=== PATIENT | female | born 1985 | race Two or more races ===

== ENCOUNTER → 2024-03-04 | Outpatient (CLI) | payer OTHER, MEDICAID, SELFPAY ==
--- NOTE | 2024-03-04 10:00 | XR_ITS ---
Examination: Breast ultrasound complete, bilateral Date and time of exam: March 04, 2024 1055 hours INDICATIONS: Bilateral breast pain beginning 3 months ago Technique: Real-time grayscale ultrasonographic imaging bilateral breasts, including all 4 quadrants as well as nipple retroareolar and axillary regions. Findings: No cystic or solid mass involving either breast IMPRESSION: BI-RADS Category 1: Negative studies
== END | disposition home or self-care (01) ==
PROVIDERS: PCP Family Medicine; Referring Provider Advanced Practice Midwife; Visit Provider Advanced Practice Midwife
DX: N64.4 Mastodynia (principal)
CPT/HCPCS: 76641

== ENCOUNTER 2024-03-09 12:26 | Outpatient (RCR) | payer OTHER, MEDICAID, SELFPAY ==
--- NOTE | 2024-03-15 14:24 | CTCFLWUP_ITS ---
Patient: ASHLEY DANGELO : 1985 Page 3 of 4 FOLLOW UP NOTE DATE OF SERVICE: 03/09/2024 NAME: ASHLEY DANGELO ACCOUNT: [id number] : 1985 AGE: 38 INTERVAL HISTORY: Patient is doing well. ONCOLOGY HISTORY: DIAGNOSIS: Malignant melanoma of skin, unspecified [ICD10] C43.9 DATE OF DIAGNOSIS: 04/26/2020 STAGE/TNM: T4a NO M0 TREATMENT HISTORY: Care?Plan Start?Date Cycle Day Intent KEYTRUDA?200 06/12/2021 1 21 Curative?(adjuvant) HISTORY OF PRESENT ILLNESS: Ashley Dangelo is a 38-year-old SPA speaking female with history of asthma has the following on cology history. 04/26/2020: Ms. Dangelo was seen at [facility] in [place] for a skin lesion located on the right buttock which was changed in color and becoming itchy. Biopsy was deferred due to insurance r easons. 11/30/2020: Shave biopsy of the right buttock lesion was performed. 02/16/2021: Ms. Dangelo had a fusiform wide excision. 03/23/2021: PET/CT scan? 04/12/2021: Ms. Dangelo had sentinel lymph node biopsy done in [place] 06/12/2021?06/07/2022: Completed 1 year of adjuvant pembrolizumab 10/18/2022: PET/CT scan? OTHER MEDICAL HISTORY/CONDITIONS: FAMILY HISTORY: SOCIAL HISTORY: LEGAL COUNSEL HISTORY: MEDICATIONS: 1. None Medications Last Reconciled by Ashley Olsen MA on 03/09/2024 ALLERGIES: No Known Drug Allergies REVIEW OF SYSTEMS: A complete 14-point review of systems was performed and is negative except as noted in interval histo ry. PHYSICAL EXAMINATION: VITAL SIGNS: Temperature?99.2, B/P?118/85, Oxygen?Saturation?97% Weight?136?lbs PAIN: 0 - No pain ECOG Performance Status: 0 - Asymptomatic and fully active GENERAL APPEARANCE: Appears well, in no apparent distress, appropriately interactive. HEENT: Normocephalic, no temporal wasting, normal conjunctiva, no scleral icterus, normal hearing, li ps without lesions, neck normal range of motion. CARDIOVASCULAR: Not assessed. PULMONARY: Normal respiratory effort, no respiratory distress or use of accessory muscles, speaking i n full sentences, no tachypnea. EXTREMITIES: No pedal edema or cyanosis. SKIN: Normal skin appearance. NEUROLOGIC: Alert and oriented x4. PSHYCHIATRIC: Appropriate affect, mood normal, behavior normal, intact thought and speech. LABORATORY DATA: I have personally reviewed and interpreted each of the patient?s relevant lab tests, abnormal finding s are below: Date 02/01/22 ??GLUCOSE,RANDOM?(mg/dL) 84 ??BLOOD?UREA?NITROGEN?(mg/dL) 20 ??CREATININE?(mg/dL) 0.70 ??SODIUM?(mmol/L) 140 ??POTASSIUM?(mmol/L) 4.3 ??CHLORIDE?(mmol/L) 109?H ??CrCl?(CandG)?(ml/min) 104.44 ??AST/SGOT?(Unit/L) <?8 ??ALT/SGPT?(Unit/L) 16 ??ALKALINE?PHOSPHATASE?(Unit/L) 45?L ??BILIRUBIN,?TOTAL?(mg/dL) 0.9 ??PROTEIN?TOTAL?(gm/dl) 7.0 ??ALBUMIN,?SERUM?(gm/dl) 4.4 ??GLOBULIN?(gm/dl) 2.6 ??ALBUMIN/GLOBULIN?RATIO 1.7 ??CALCIUM,?SERUM?(mg/dL) 8.8 ??CALCIUM?SERUM?(CORRECTED)?(mg/dL) 8.8 ASSESSMENT/PLAN: 1. Stage IIb (PT 4a, sN0, cM0) malignant melanoma (02/16/2021) Ms. Dangelo is clinically doing well without any complaints. No clinical evidence of recurrence of her melanoma PET/CT scan (10/18/2022) is negative for recurrence. Completed 1 year of adjuvant pembrolizumab on 06/07/2022 without any significant side effects. No specific intervention required at this time. ORDERS: PET/CT scan for restaging scan and to rule out any recurrence and metastatic disease RETURN TO CLINIC: 6 months BILLING AND COMPLIANCE: I reviewed external records from providers outside my specialty as summarized above. I spent a total of 50 minutes on this patient?s care on the day of their visit excluding time spent related to any bi lled procedures. This time includes time spent with the patient as well as time spent documenting in the medical record, reviewing patients records and tests, obtaining history, placing orders, communi cating with other healthcare professionals, counseling the patient, family or caregiver, and/or care coordination for the diagnoses above. Electronically Signed by: Akshat Hoang MD T: 2:21 PM CC: PCP: Feli Crespo Referring: Feli Crespo This document was completed utilizing speech recognition software. Grammatical errors, random word in sertions, pronoun errors, and incomplete sentences are an occasional consequence of this system due t o software limitations, ambient noise, and hardware issues. Any formal questions or concerns about th e content, text or information contained within the body of this dictation should be directly address ed to the provider for clarification.
== END 2024-03-17 23:59 | disposition home or self-care (01) ==
LOC: SCTC 12:26
PROVIDERS: PCP Nurse Practitioner Family; Referring Provider Nurse Practitioner Family; Visit Provider Internal Medicine Hematology & Oncology
DX: Z08 Encounter for follow-up examination after completed treatment for malignant neoplasm (principal); Z85.820 Personal history of malignant melanoma of skin
CPT/HCPCS: 99212; G0463

== ENCOUNTER → 2024-04-09 | Outpatient (CLI) | payer OTHER, MEDICAID, SELFPAY ==
[2024-04-09 14:14] LABS: HCG Qualitative,Urine Negative
--- NOTE | 2024-04-09 14:45 | XR_ITS ---
EXAMINATION: PET/CT FUSION SKULL TO THIGH EXAM DATE AND TIME: April 09, 2024 1517 hours Comparison October 18, 2022 INDICATIONS: Diagnosis malignant melanoma post treatment restaging CTDI:vol (mGy) 7.21 DLP: (mGycm) 1116.44 PROCEDURE: 16.55 mCi FDG was administered intravenously To allow for distribution and uptake of radiotracer, the patient was allowed to rest quietly in a shielded room. Imaging was performed on an integrated 16-slice PET/CT scanner, with scanning from the skull base to the mid thigh. Serum blood glucose at the time of the injection was measured 83 mg/dL. CT scanning was performed without oral or intravenous contrast material. FINDINGS: Head and Neck: There is no victorino hypermetabolism in the neck. The visualized portions of the brain are normal in appearance on CT. Chest: There is no victorino hypermetabolism in the chest. There are no pulmonary nodules. Abdomen and Pelvis: There is no victorino hypermetabolism in retroperitoneal or pelvic chains. The spleen is normal in size and FDG avidity. Musculoskeletal: Marrow uptake is within normal range. IMPRESSION: No interval metastatic disease
== END | disposition home or self-care (01) ==
LOC: CDIM 13:27
PROVIDERS: PCP Family Medicine; Referring Provider Internal Medicine Hematology & Oncology; Visit Provider Internal Medicine Hematology & Oncology
DX: C43.9 Malignant melanoma of skin, unspecified (principal); Z32.00 Encounter for pregnancy test, result unknown
CPT/HCPCS: 78816; 81025; A9552

== ENCOUNTER 2024-04-30 10:33 | Outpatient (RCR) | payer OTHER, MEDICAID, SELFPAY ==
--- NOTE | 2024-05-17 13:54 | CTCFLWUP_ITS ---
Patient: ASHLEY DANGELO : 1985 Page 3 of 4 FOLLOW UP NOTE DATE OF SERVICE: 04/30/2024 NAME: ASHLEY DANGELO ACCOUNT: [id number] : 1985 AGE: 39 INTERVAL HISTORY: Patient is doing well. ONCOLOGY HISTORY: DIAGNOSIS: Malignant melanoma of skin, unspecified [ICD10] C43.9 DATE OF DIAGNOSIS: 04/26/2020 STAGE/TNM: T4a NO M0 TREATMENT HISTORY: Care?Plan Start?Date Cycle Day Intent KEYTRUDA?200 06/12/2021 1 21 Curative?(adjuvant) HISTORY OF PRESENT ILLNESS: Ashley Dangelo is a 39-year-old SPA speaking female with history of asthma has the following oncology history. 04/26/2020: Ms. Dangelo was seen at [facility] in [place] for a skin lesion located on the right buttock which was changed in color and becoming itchy. Biopsy was deferred due to insurance reasons. 11/30/2020: Shave biopsy of the right buttock lesion was performed. 02/16/2021: Ms. Dangelo had a fusiform wide excision. 03/23/2021: PET/CT scan? 04/12/2021: Ms. Dangelo had sentinel lymph node biopsy done in [place] 06/12/2021?06/07/2022: Completed 1 year of adjuvant pembrolizumab 10/18/2022: PET/CT scan? 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 None Medications Last Reconciled by Bere Chavarria MA on 04/30/2024 ALLERGIES: No Known Drug Allergies REVIEW OF SYSTEMS: A complete 14-point review of systems was performed and is negative except as noted in interval history. PHYSICAL EXAMINATION: VITAL SIGNS: Temperature?98.1, B/P?115/76, Oxygen?Saturation?96% Weight?141?lbs PAIN: 0 - No pain GENERAL APPEARANCE: Appears well, in no apparent distress, appropriately interactive. HEENT: Normocephalic, no temporal wasting, normal conjunctiva, no scleral icterus, normal hearing, lips without lesions, neck normal range of motion. CARDIOVASCULAR: Not assessed. PULMONARY: Normal respiratory effort, no respiratory distress or use of accessory muscles, speaking in full sentences, no tachypnea. EXTREMITIES: No pedal edema or cyanosis. SKIN: Normal skin appearance. NEUROLOGIC: Alert and oriented x4. PSHYCHIATRIC: Appropriate affect, mood normal, behavior normal, intact thought and speech. LABORATORY DATA: I have personally reviewed and interpreted each of the patient?s relevant lab tests, abnormal findings are below: Date 02/01/22 ??GLUCOSE,RANDOM?(mg/dL) 84 ??BLOOD?UREA?NITROGEN?(mg/dL) 20 ??CREATININE?(mg/dL) 0.70 ??SODIUM?(mmol/L) 140 ??POTASSIUM?(mmol/L) 4.3 ??CHLORIDE?(mmol/L) 109?H ??CrCl?(CandG)?(ml/min) 104.44 ??AST/SGOT?(Unit/L) <?8 ??ALT/SGPT?(Unit/L) 16 ??ALKALINE?PHOSPHATASE?(Unit/L) 45?L ??BILIRUBIN,?TOTAL?(mg/dL) 0.9 ??PROTEIN?TOTAL?(gm/dl) 7.0 ??ALBUMIN,?SERUM?(gm/dl) 4.4 ??GLOBULIN?(gm/dl) 2.6 ??ALBUMIN/GLOBULIN?RATIO 1.7 ??CALCIUM,?SERUM?(mg/dL) 8.8 ??CALCIUM?SERUM?(CORRECTED)?(mg/dL) 8.8 ASSESSMENT/PLAN: 1. Stage IIb (PT 4a, sN0, cM0) malignant melanoma (02/16/2021) Ms. Dangelo is clinically doing well without any complaints. No clinical evidence of recurrence of her melanoma PET/CT scan (10/18/2022) is negative for recurrence. Completed 1 year of adjuvant pembrolizumab on 06/07/2022 without any significant side effects. No specific intervention required at this time. CBC CMP Refer to dermatology for physical examination for any melanoma reoccurrence RETURN TO CLINIC: 1 year BILLING AND COMPLIANCE: I reviewed external records from providers outside my specialty as summarized above. I spent a total of 50 minutes on this patient?s care on the day of their visit excluding time spent related to any billed procedures. This time includes time spent with the patient as well as time spent documenting in the medical record, reviewing patients records and tests, obtaining history, placing orders, communicating with other healthcare professionals, counseling the patient, family or caregiver, and/or care coordination for the diagnoses above. Electronically Signed by: Akshat Hoang MD T: 1:52 PM CC: PCP: Juliano Morocho Referring: Juliano Morocho This document was completed utilizing speech recognition software. Grammatical errors, random word insertions, pronoun errors, and incomplete sentences are an occasional consequence of this system due to software limitations, ambient noise, and hardware issues. Any formal questions or concerns about the content, text or information contained within the body of this dictation should be directly addressed to the provider for clarification.
== END 2024-05-15 23:59 | disposition home or self-care (01) ==
LOC: SCTC 10:33
PROVIDERS: PCP Family Medicine; Referring Provider Family Medicine; Visit Provider Internal Medicine Hematology & Oncology
DX: Z08 Encounter for follow-up examination after completed treatment for malignant neoplasm (principal); Z85.820 Personal history of malignant melanoma of skin; Z92.21 Personal history of antineoplastic chemotherapy
CPT/HCPCS: 99212; G0463

== ENCOUNTER 2024-10-29 11:34 | Outpatient (RCR) | payer OTHER, MEDICAID, SELFPAY ==
--- NOTE | 2024-10-29 13:16 | CTCFLWUP_ITS ---
Patient: ASHLEY DANGELO : 1985 Page 2 of 2 FOLLOW UP NOTE DATE OF SERVICE: 10/29/2024 NAME: ASHLEY DANGELO ACCOUNT: [id number] : 1985 AGE: 39 INTERVAL HISTORY: Patient is doing well. No new complaints. Patient yet to see dermatology ONCOLOGY HISTORY: DIAGNOSIS: Malignant melanoma of skin, unspecified [ICD10] C43.9 DATE OF DIAGNOSIS: 04/26/2020 STAGE/TNM: T4a NO M0 TREATMENT HISTORY: Care?Plan Start?Date Cycle Day Intent KEYTRUDA?200 06/12/2021 1 21 Curative?(adjuvant) HISTORY OF PRESENT ILLNESS: Ashley Dangelo is a 39-year-old SPA speaking female with history of asthma has the following oncology history. 04/26/2020: Ms. Dangelo was seen at [facility] in [place] for a skin lesion located on the right buttock which was changed in color and becoming itchy. Biopsy was deferred due to insurance reasons. 11/30/2020: Shave biopsy of the right buttock lesion was performed. 02/16/2021: Ms. Dangelo had a fusiform wide excision. 03/23/2021: PET/CT scan? 04/12/2021: Ms. Dangelo had sentinel lymph node biopsy done in [place] 06/12/2021?06/07/2022: Completed 1 year of adjuvant pembrolizumab 10/18/2022: PET/CT scan? OTHER MEDICAL HISTORY/CONDITIONS: FAMILY HISTORY: SOCIAL HISTORY: APPLICATION INTERNSHIP HISTORY: MEDICATIONS: 1. None Medications Last Reconciled by Ashley Rodriguez MD on 10/29/2024 ALLERGIES: No Known Drug Allergies REVIEW OF SYSTEMS: A complete 14-point review of systems was performed and is negative except as noted in interval history. PHYSICAL EXAMINATION: VITAL SIGNS: Temperature?97.3, B/P?111/71, Oxygen?Saturation?98% Weight?135?lbs ECOG Performance Status: 0 - Asymptomatic and fully active GENERAL APPEARANCE: Appears well, in no apparent distress, appropriately interactive. HEENT: Normocephalic, no temporal wasting, normal conjunctiva, no scleral icterus, normal hearing, lips without lesions, neck normal range of motion. CARDIOVASCULAR: Not assessed. PULMONARY: Normal respiratory effort, no respiratory distress or use of accessory muscles, speaking in full sentences, no tachypnea. EXTREMITIES: No pedal edema or cyanosis. SKIN: Normal skin appearance. NEUROLOGIC: Alert and oriented x4. PSHYCHIATRIC: Appropriate affect, mood normal, behavior normal, intact thought and speech. LABORATORY DATA: I have personally reviewed and interpreted each of the patient?s relevant lab tests, abnormal findings are below: Date 01/11/22 02/01/22 ??WHITE?BLOOD?COUNT?(Thou/mm3) 3.9 5.7 ??RED?BLOOD?COUNT?(Miln/mm3) 3.82?L 3.93?L ??HEMOGLOBIN?(gm/dl) 11.6?L 12.0 ??HEMATOCRIT?(%) 35.2?L 36.5 ??PLATELET?COUNT?(Thou/mm3) 148 146 ??NEUTROPHILS?%,?AUTO?(%) 49 58 ??LYMPH?%,?AUTO?(%) 37 26 ??NEUTROPHILS,?AUTO?(Thou/mm3) 1.9 3.4 ??GLUCOSE,RANDOM?(mg/dL) 93 84 ??BLOOD?UREA?NITROGEN?(mg/dL) 14 20 ??CREATININE?(mg/dL) 0.60 0.70 ??SODIUM?(mmol/L) 140 140 ??POTASSIUM?(mmol/L) 4.0 4.3 ??CHLORIDE?(mmol/L) 109?H 109?H ??CrCl?(CandG)?(ml/min) 122.23 104.44 ??AST/SGOT?(Unit/L) 23 <?8 ??ALT/SGPT?(Unit/L) 18 16 ??ALKALINE?PHOSPHATASE?(Unit/L) 52 45?L ??BILIRUBIN,?TOTAL?(mg/dL) 0.6 0.9 ??PROTEIN?TOTAL?(gm/dl) 7.1 7.0 ??ALBUMIN,?SERUM?(gm/dl) 4.4 4.4 ??GLOBULIN?(gm/dl) 2.7 2.6 ??ALBUMIN/GLOBULIN?RATIO 1.6 1.7 ??CALCIUM,?SERUM?(mg/dL) 8.6 8.8 ??CALCIUM?SERUM?(CORRECTED)?(mg/dL) 8.6 8.8 ASSESSMENT/PLAN: 1. Stage IIb (PT 4a, sN0, cM0) malignant melanoma (02/16/2021) Ms. Dangelo is clinically doing well without any complaints. No clinical evidence of recurrence of her melanoma PET/CT scan 04/09/2024 is negative for recurrence. Completed 1 year of adjuvant pembrolizumab on 06/07/2022 without any significant side effects. No specific intervention required at this time. CBC CMP Refer to dermatology for physical examination for any melanoma reoccurrence ORDERS: Order # Description [id number] MD Follow Up 6 Month [id number] Vitamin B-12 + Folic Acid; Serum + Ferritin + Iron Panel + Reticulocyte Count [id number] MD Follow Up 6 Month RETURN TO CLINIC: I reviewed the diagnosis, prognosis, and recommended treatment/procedure options with the patient (and/or their legal customer response representative), including the potential benefits, risks, side effects and alternative therapies. We also discussed the option of no treatment and the possibility of clinical trial participation, if applicable. All questions were addressed, and they demonstrated understanding. They provided informed consent to proceed with the proposed plan of care. BILLING AND COMPLIANCE: I reviewed external records from providers outside my specialty as summarized above. I spent a total of 50 minutes on this patient?s care on the day of their visit excluding time spent related to any billed procedures. This time includes time spent with the patient as well as time spent documenting in the medical record, reviewing patients records and tests, obtaining history, placing orders, communicating with other healthcare professionals, counseling the patient, family or caregiver, and/or care coordination for the diagnoses above. Electronically Signed by: Akshat Hoang MD T: 1:14 PM CC: PCP: Juliano Morocho Referring: Juliano Morocho This document was completed utilizing speech recognition software. Grammatical errors, random word insertions, pronoun errors, and incomplete sentences are an occasional consequence of this system due to software limitations, ambient noise, and hardware issues. Any formal questions or concerns about the content, text or information contained within the body of this dictation should be directly addressed to the provider for clarification.
== END 2024-11-15 23:59 | disposition home or self-care (01) ==
LOC: SCTC 11:34
PROVIDERS: PCP Family Medicine; Referring Provider Family Medicine; Visit Provider Internal Medicine Hematology & Oncology
DX: Z08 Encounter for follow-up examination after completed treatment for malignant neoplasm (principal); Z85.820 Personal history of malignant melanoma of skin
CPT/HCPCS: 99212; G0463